=== PATIENT | female | born 1995 | race African-American/Black ===

== ENCOUNTER 2019-01-03 12:23 | Emergency (ER) | payer OTHER, SELFPAY ==
[2019-01-03 14:32] LABS: Bilirubin Small (Negative); Blood, Urine Negative (Negative); Clarity CLOUDY (Clear); Glucose, Urine (Dipstick) 100 mg/dL (Negative); Leukocyte Negative (Negative); Nitrite Positive (Negative); Protein, Urine (Dipstick) Trace mg/dL (Neg-Trace); Specific Gravity, Urine 1.031 (1.002-1.036); pH, Urine 5.5 (5.0-9.0)
[2019-01-03 14:35] LABS: Bacteria/HPF 4+ HPF (None Seen); Hyaline Casts/LPF 0-3 HYALINE CAST LPF (0-3 Hyaline); Pathc Cast-AUWi Flag 0.43 (0-2.49)
== END 2019-01-03 14:45 | disposition home or self-care (01) ==
LOC: ERS 12:23
DX: N39.0 Urinary tract infection, site not specified (principal); F41.9 Anxiety disorder, unspecified; F32.9 Major depressive disorder, single episode, unspecified; F17.210 Nicotine dependence, cigarettes, uncomplicated
CPT/HCPCS: 81003; 81015; 87077; 87081; 87086; 87186; 87430; 99283

== ENCOUNTER 2019-04-29 23:01 | Emergency (ER) | payer OTHER, SELFPAY ==
[2019-04-29 23:42] LABS: Hemoglobin 10.4 g/dL (12.0-16.0); Mean Corpuscular HGB CONC 33.3 g/dL (32.0-36.0); Mean Corpuscular Hemoglobin 27.1 pg (27.0-31.0); Mean Corpuscular Volume 81.4 fL (78.0-98.0); Mean Platelet Volume 7.7 fL (7.4-10.4); Platelet Count 254 thou/uL (130-400); RBC Distribution Width 14.7 % (11.5-14.5); Red Blood Cell (RBC) Count 3.83 mill/uL (4.20-5.40); White Blood Cell (WBC) Count 13.6 thou/uL (4.8-10.8)
[2019-04-30 00:01] LABS: ALT (SGPT) Less than 7 U/L (8-55); AST (SGOT) 6 U/L (5-34); Albumin 3.6 g/dL (3.5-5.0); Alkaline Phosphatase 85 U/L (40-150); Anion Gap 10 mmol/L (10-20); BUN (Urea Nitrogen) 6 mg/dL (7.0-18.7); Bilirubin, Total 0.3 mg/dL (0.2-1.2); Calc. Creatinine Clearance 0 mL/min (70-130); Calcium 9.1 mg/dL (7.8-10.44); Carbon Dioxide 23 mmol/L (22-29); Chloride 103 mmol/L (98-107); Estimated GFR-MDRD Greater than 90; Globulin 2.9 g/dL (2.4-3.5); Glucose 115 mg/dL (70-105); Protein, Total 6.5 g/dL (6.0-8.3); Sodium 133 mmol/L (136-145)
[2019-04-30 00:03] LABS: Band 1 % (5-11); Hypochromia SLIGHT = 6-15 cells (100X) (0-5/hpf); Lymphocytes 9 % (21-51); MDiff Complete? YES; Monocytes 4 % (0-10); Neutrophil 86 % (42-75); Platelet Morphology Comment Appears Adequate
[2019-04-30 01:22] LABS: Bilirubin Negative (Negative); Blood, Urine Small (Negative); Clarity TURBID (Clear); Glucose, Urine (Dipstick) Negative (Negative); Leukocyte Large (Negative); Nitrite Positive (Negative); Protein, Urine (Dipstick) 30 mg/dL (Neg-Trace); Specific Gravity, Urine 1.019 (1.002-1.036)
[2019-04-30 01:25] LABS: Bacteria/HPF 4+ HPF (None Seen); Hyaline Casts/LPF 4-6 HYALINE CAST LPF (0-3 Hyaline); Pathc Cast-AUWi Flag 0.59 (0-2.49); Squamous Epithelial 0-3 HPF (0-3)
[2019-04-30 01:32] LABS: Yeast-AUWi Flag 33.8 (0-25.0)
[2019-04-30 01:40] LABS: Yeast-All Forms None Seen HPF (None Seen)
[2019-04-30] MEDS ORDERED: cefTRIAXone\\ROCEPHIN 1 GM VIAL ONE (01:57)
[2019-04-30] MEDS ORDERED: Potassium Chloride 40 MEQ in Sodium Chloride 0.9% 250 ML 250 ML IVPB SCH (02:00)
== END 2019-04-30 02:17 | disposition left against medical advice (07) ==
LOC: ERS 23:01
DX: O23.02 Infections of kidney in pregnancy, second trimester (principal); N12 Tubulo-interstitial nephritis, not specified as acute or chronic; O99.282 Endocrine, nutritional and metabolic diseases complicating pregnancy, second trimester; E87.6 Hypokalemia; O99.332 Smoking (tobacco) complicating pregnancy, second trimester; F17.210 Nicotine dependence, cigarettes, uncomplicated; Z3A.00 Weeks of gestation of pregnancy not specified
CPT/HCPCS: 36415; 80053; 81003; 81015; 83605; 85025; 96360; J0696; J3480; J7050